=== PATIENT | male | born 1955 | race Caucasian/White ===

== ENCOUNTER 2020-06-05 07:50 | Day surgery (SDC) | payer BC ==
[~2020-06-05 07:50] MED LIST: Midazolam 1 MG/ML 2 ML SDV ONE; Propofol 200 MG/20 ML SDV ONE; fentaNYL 100 MCG/2 ML SDV ONE
[2020-06-05] MEDS ORDERED: Sodium Chloride 0.9% 1,000 ML IV SCH (08:30)
--- NOTE | 2020-06-05 13:31 | OR ---
DATE OF PROCEDURE: 06/05/2020 SURGEON: Jerrell Perera MD PREOPERATIVE DIAGNOSIS: Positive Cologuard test. POSTOPERATIVE DIAGNOSIS: Positive Cologuard test. PROCEDURE: Colonoscopy. FINDINGS: Rectal polyp, approximately 1 cm, completely removed using hot snare wire device. COMPLICATION: None. SEMICONDUCTOR TECHNICIAN: None. ANESTHESIA: MAC. RISKS: Risks, benefits, alternatives, and limitations including, but not limited to infection, bleeding, perforation, false positives and false negatives were explained to the patient who wished to proceed. PROCEDURE IN DETAIL: The patient was placed in left lateral decubitus position. Digital rectal exam was performed without abnormality. Scope was introduced and advanced atraumatically to the ileocecal valve. A photo was taken of this. Scope was brought back through the ascending, transverse, descending colon, and retroflexed. No evidence of old or new blood. No masses. No diverticulosis. No colitis. Within the rectum, there was the aforementioned polyp that was completely removed. The patient had small amount of bleeding, the cautery was used to control this. No abnormalities on retroflexion. Greater than 8 minutes was spent removing the scope. The prep was acceptable, approximately 95% of the luminal surface could be seen. Jerrell Perera MD /[id number]
== END 2020-06-05 10:45 | disposition home or self-care (01) ==
LOC: JP.SDS 07:50
PROVIDERS: ATTEND Surgery
DX: D12.8 Benign neoplasm of rectum (principal); I10 Essential (primary) hypertension; E78.5 Hyperlipidemia, unspecified; Z88.8 Allergy status to other drugs, medicaments and biological substances
CPT/HCPCS: 45385; J2250; J2704; J3010; J7030; 88305

== ENCOUNTER 2021-04-10 09:38 | Emergency (ER) | payer BC ==
--- NOTE | 2021-04-10 11:02 | EDM.PDOC ---
ED HPI GENERAL MEDICAL PROBLEM - General Chief Complaint: General Stated Complaint: VERTIGO Time Seen by Provider: 04/10/21 10:00 Source of Information: Reports: Patient History Limitations: Reports: No Limitations - History of Present Illness INITIAL COMMENTS - FREE TEXT/NARRATIVE: 65-year-old male arrives with significant vertigo, it was present when he woke up at 5:00 this morning. His only other complaint is the last couple weeks he says he has been more "forgetful" and seemed to have decreased short-term memory but no other complaints. No recent illness. This morning he woke at 5:00, could barely get to the bathroom because the room was spinning and he has been laying in bed this morning watching the ceiling spinning and it was not improving. No pain, no double vision, some mild nausea but no vomiting, no recent trauma. He has no peripheral symptoms such as hand arm or leg weakness. Onset: Unknown/Unsure (Symptoms were present when he woke at 5 AM) Duration: Hour(s): (At least 5 or 6 hours) Improves with: Reports: Other (Sitting still is somewhat helpful) Worsens with: Reports: Movement Associated Symptoms: Reports: Other (Mild nausea, no vomiting) - Related Data Allergies Allergy/AdvReac Type Severity Reaction Status Date / Time lisinopril AdvReac Cough Verified 06/05/20 08:05 Home Meds: Home Meds Losartan [Cozaar] 50 mg PO DAILY 06/03/20 [History] atorvaSTATin [Lipitor] 20 mg PO BEDTIME 06/03/20 [History] Multivitamin with Minerals [Multiple Vitamin] 1 tab PO DAILY 06/05/20 [History] Past Medical History Cardiovascular History: Reports: Hypertension Neurological History: Reports: Concussion - Infectious Disease History Infectious Disease History: Reports: Chicken Pox - Past Surgical History HEENT Surgical History: Reports: Other (See Below) Other HEENT Surgeries/Procedures: wisdom teeth x2 GI Surgical History: Reports: Colonoscopy Social & Family History - Tobacco Use Tobacco Use Status *Q: Never Tobacco User - Caffeine Use Caffeine Use: Reports: None - Recreational Drug Use Recreational Drug Use: No ED ROS GENERAL - Review of Systems Review Of Systems: See Below Constitutional: Reports: Malaise. Denies: Fever, Chills HEENT: Denies: Vision Change Respiratory: Denies: Shortness of Breath Cardiovascular: Denies: Chest Pain Endocrine: Reports: No Symptoms GI/Abdominal: Reports: Nausea. Denies: Constipation, Diarrhea, Vomiting : Reports: No Symptoms Musculoskeletal: Reports: No Symptoms Skin: Reports: No Symptoms Neurological: Reports: Dizziness (Vertigo), Other (Over the past couple weeks concerned about short-term memory loss) Psychiatric: Reports: No Symptoms ED EXAM, GENERAL - Physical Exam Exam: See Below Exam Limited By: No Limitations General Appearance: Alert, No Apparent Distress Eye Exam: Bilateral Eye: PERRL, Other (Definite nystagmus when looking to the left) Ears: Normal TMs Head: Atraumatic Neck: Supple, Non-Tender Respiratory/Chest: No Respiratory Distress Cardiovascular: Regular Rate, Rhythm Extremities: Normal Inspection Neurological: Alert, Oriented Psychiatric: Normal Affect, Normal Mood Skin Exam: Warm, Dry Course - Vital Signs Last Recorded V/S: Last Vital Signs Temp 94.3 F L 04/10/21 09:56 Pulse 64 04/10/21 13:50 Resp 16 04/10/21 09:56 BP 142/82 H 04/10/21 13:50 Pulse Ox 97 04/10/21 13:50 - Orders/Labs/Meds Labs: Laboratory Tests 04/10/21 04/10/21 Range/Units 11:50 12:00 WBC 9.7 (4.5-11.0) K/uL RBC 4.96 (4.30-5.90) M/uL Hgb 14.7 (12.0-15.0) g/dL Hct 43.4 (40.0-54.0) % MCV 88 (80-98) fL MCH 30 (27-31) pg MCHC 34 (32-36) % Plt Count 266 (150-400) K/uL Neut % (Auto) 81.5 H (36-66) % Lymph % (Auto) 10.5 L (24-44) % Brown % (Auto) 7.7 H (2-6) % Eos % (Auto) 0.0 L (2-4) % Baso % (Auto) 0.3 (0-1) % Sodium 136 L (140-148) mmol/L Potassium 3.9 (3.6-5.2) mmol/L Chloride 102 (100-108) mmol/L Carbon Dioxide 24 (21-32) mmol/L Anion Gap 13.9 (5.0-14.0) mmol/L BUN 17 (7-18) mg/dL Creatinine 1.0 (0.8-1.3) mg/dL Est Cr Clr Drug Dosing 75.61 mL/min Estimated GFR (MDRD) > 60 (>60) Glucose 120 H (74-106) mg/dL Calcium 8.6 (8.5-10.1) mg/dL Meds: Medications Discontinued Medications Generic Name Dose Route Start Last Admin Trade Name Freq PRN Reason Stop Dose Admin Sodium Chloride 100 mls @ 3 mls/sec 04/10/21 11:45 04/10/21 12:37 Normal Saline IV 3 mls/sec ASDIRECTED AUTUMN Administration Iopamidol 100 ml 04/10/21 11:41 04/10/21 12:37 Iopamidol 612 Mg/Ml 100 Ml Bottle IV 04/11/21 11:42 100 ml . DIRECTED PRN Administration RADIOLOGY EXAM Meclizine HCl 25 mg 04/10/21 13:40 04/10/21 13:49 Meclizine 25 Mg Tab PO 04/10/21 13:41 Not Given ONETIME ONE Sodium Chloride 10 ml 04/10/21 11:41 04/10/21 11:49 Sodium Chloride 0.9% 10 Ml Sdv FLUSH 04/10/21 11:42 10 ml ONETIME ONE Administration - Re-Assessments/Exams Free Text/Narrative Re-Assessment/Exam: 04/10/21 11:01 His vertiginous symptoms were isolated to the left side, so an Kat maneuver was attempted but unsuccessful. This was followed by a CT scan of the head. 04/10/21 13:[address] was negative, CBC and BMP were normal other than a mildly elevated glucose. His symptoms were persistent, a CT angiogram of the head was ordered to rule out vertebral artery circulation issues. 04/10/21 13:30 CT angiogram is negative, patient will be discharged with meclizine to take as a as needed basis and recheck in 2 or 3 days if not improving satisfactorily. 04/10/21 15:36 Prior to discharge the patient developed some nausea so was given Zofran as well. Departure - Departure Time of Disposition: 14:17 Disposition: Home, Self-Care 01 Clinical Impression: Vertigo Acute vestibular neuritis Qualifiers: Laterality: left Qualified Code(s): H81.22 - Vestibular neuronitis, left ear - Discharge Information Instructions: Vertigo, [id number] Referrals: PCP,None [Primary Care Provider] - Forms: ED Department Discharge Care Plan Goals: Try the meclizine up to 3 times a day if needed for persistent symptoms. Stay hydrated, increase activity as tolerated, recheck next week as scheduled or return sooner if worsening or concerns. Sepsis Event Note (ED) - Evaluation Sepsis Screening Result: No Definite Risk - Focused Exam Vital Signs: Vital Signs Temp Pulse Resp BP Pulse Ox 04/10/21 13:50 64 142/82 H 97 04/10/21 12:00 57 L 166/91 H 96 04/10/21 11:13 65 172/100 H 95 04/10/21 09:56 94.3 F L 53 L 16 149/84 H 97
--- NOTE | 2021-04-10 11:24 | CRLCT ---
For Patients: As a result of the Century Cures Act, medical imaging exams and procedure reports are released immediately into your electronic medical record. You may view this report before your referring provider. If you have questions, please contact your health care provider. INDICATION: Vertigo, concern for cerebellar infarct TECHNIQUE: CT head without contrast. COMPARISON: 12/31/2010 FINDINGS: CSF spaces: Within normal limits for age. Brain parenchyma: The zarco-white differentiation is normal. No sign of mass, hemorrhage, or midline shift. Skull base and calvarium: The visualized paranasal sinuses and mastoid air cells are clear. The visualized orbits are grossly unremarkable. No skull fractures. IMPRESSION: Unremarkable noncontrast head CT. Please note that all CT scans at this facility use dose modulation, iterative reconstruction, and/or weight-based dosing when appropriate to reduce radiation dose to as low as reasonably achievable. Dictated by Bernardino Díaz MD @ 04/10/2021 11:23:26 AM (Electronically Signed)
[2021-04-10] MEDS ORDERED: Iopamidol 612 MG/ML 100 ML Bottle IV PRN (11:41)
[2021-04-10] MEDS ORDERED: Sodium Chloride 0.9% 10 ML SDV FLUSH ONE (11:41)
[2021-04-10] MEDS ORDERED: Sodium Chloride 0.9% 100 ML IV SCH (11:45)
--- NOTE | 2021-04-10 13:17 | CRLCT ---
For Patients: As a result of the Century Cures Act, medical imaging exams and procedure reports are released immediately into your electronic medical record. You may view this report before your referring provider. If you have questions, please contact your health care provider. INDICATION: Vertigo since 5 a.m. this morning. Assess vertebral regulation TECHNIQUE: Scanning of the head was performed with 100 cc of Isovue-300 contrast material IV. Coronal and sagittal reconstructions were obtained. COMPARISON: Head CT performed without IV contrast earlier today. FINDINGS: The distal vertebral arteries and basilar artery are tortuous but normal in caliber. The other visualized vascular structures are unremarkable. No abnormal contrast enhancement is demonstrated. No acute hemorrhage, parenchymal attenuation abnormality, or mass effect is demonstrated. Differentiation between the zarco matter and white matter is preserved. The ventricles and other subarachnoid spaces are within normal limits. No calvarial abnormality is evident. The visualized paranasal and mastoid sinuses are clear. IMPRESSION: Negative contrast-enhanced head CT. Please note that all CT scans at this facility use dose modulation, iterative reconstruction, and/or weight-based dosing when appropriate to reduce radiation dose to as low as reasonably achievable. Dictated by Shailesh Baez MD @ 04/10/2021 1:15:52 PM (Electronically Signed)
[2021-04-10] MEDS ORDERED: Meclizine 25 MG Tab PO ONE (13:40)
== END 2021-04-10 14:00 | disposition home or self-care (01) ==
LOC: JP.ED 09:38
DX: H81.22 Vestibular neuronitis, left ear (principal); I10 Essential (primary) hypertension; Z79.899 Other long term (current) drug therapy; Z88.8 Allergy status to other drugs, medicaments and biological substances
CPT/HCPCS: 36415; 70450; 70460; 80048; 85025; 99284; Q9967

== ENCOUNTER 2022-05-08 13:40 | Emergency (ER) | payer BC, OTHER | END 2022-05-08 14:53 | disposition home or self-care (01) | LOC: JP.ED 13:40 | DX: S63.501A Unspecified sprain of right wrist, initial encounter (principal); I10 Essential (primary) hypertension; Z88.8 Allergy status to other drugs, medicaments and biological substances; Z79.899 Other long term (current) drug therapy; Z87.891 Personal history of nicotine dependence | CPT/HCPCS: 73110-RT; 99282; 99283 ==

== ENCOUNTER 2022-08-24 08:53 | Emergency (ER) | payer OTHER ==
[2022-08-24] MEDS ORDERED: Apixaban 5 MG Tab PO ONE (10:44)
== END 2022-08-24 11:05 | disposition home or self-care (01) ==
LOC: JP.ED 08:53
DX: I82.621 Acute embolism and thrombosis of deep veins of right upper extremity (principal); I10 Essential (primary) hypertension; Z88.8 Allergy status to other drugs, medicaments and biological substances; Z79.899 Other long term (current) drug therapy
CPT/HCPCS: 93971-26; 93971-RT; 99283; A9270-GY

== ENCOUNTER 2023-03-14 01:05 | Emergency (ER) | payer OTHER ==
[2023-03-14] MEDS ORDERED: Sodium Chloride 0.9% 10 ML Syringe FLUSH PRN (01:21)
[2023-03-14 01:31] LABS: BASOPHILS ABSOLUTE AUTO 0.08 K/uL (0.00-0.10); BASOPHILS PERCENT AUTO 0.6 % (0.1-1.3); EOSINOPHILS ABSOLUTE AUTO 0.08 K/uL (0.00-0.40); EOSINOPHILS PERCENT AUTO 0.6 % (0.0-5.4); HEMATOCRIT 32.1 % (38.4-49.7); HEMOGLOBIN 10.7 g/dL (12.9-16.9); IMMATURE GRAN ABSOLUTE AUTO 0.07 K/uL (0.00-0.23); IMMATURE GRAN PERCENT AUTO 0.5 % (0.0-0.7); LYMPHOCYTES ABSOLUTE AUTO 2.26 K/uL (0.8-3.3); LYMPHOCYTES PERCENT AUTO 17.4 % (11.4-47.7); MEAN CORPUSCULAR HEMOGLOBIN 29.3 pg (31.6-35.5); MEAN CORPUSCULAR HGB CONC 33.3 g/dL (31.6-35.5); MEAN CORPUSCULAR VOLUME 87.9 fL (81.4-99.0); MONOCYTES ABSOLUTE AUTO 0.88 K/uL (0.20-0.90); MONOCYTES PERCENT AUTO 6.8 % (3.3-12.6); NEUTROPHILS ABSOLUTE AUTO 9.61 K/uL (1.0-7.6); NEUTROPHILS PERCENT AUTO 74.1 % (40.0-78.1); PLATELET COUNT,PLT 373 K/uL (130-375); RED BLOOD CELL COUNT 3.65 M/uL (4.14-5.76)
[2023-03-14] MEDS ORDERED: Sodium Chloride 0.9% 100 ML IV STA (01:47)
[2023-03-14] MEDS ORDERED: Iopamidol 612 MG/ML 100 ML Bottle IV STA (01:47)
[2023-03-14 01:50] LABS: PROTHROMBIN TIME 10.1 sec (9.2-10.6); PTT,PARTIAL THROMBOPLSTIN TIME 22.3 sec (21.8-27.3)
[2023-03-14 01:52] LABS: A/G RATIO 0.9 (1.2-2.2); ALANINE AMINOTRANSFERASE,ALT 11 U/L (12-78); ALBUMIN 3.3 g/dL (3.4-5.0); ALKALINE PHOSPHATASE 50 U/L (46-116); ASPARTATE AMNIOTRANSFERASE,AST 14 U/L (15-37); BILIRUBIN TOTAL 0.4 mg/dL (0.2-1.0); BLOOD UREA NITROGEN,BUN 19 mg/dL (7-18); C-REACTIVE PROTEIN 0.55 mg/dL (0.0-0.3); CALCIUM 8.4 mg/dL (8.5-10.1); CARBON DIOXIDE,CO2 24 mmol/L (21-32); CHLORIDE,CL 104 mmol/L (100-108); EST CRCL DRUG DOSING (CG) 73.65 mL/min; ESTIMATED GFR 84 mL/min (>60); GLUCOSE RANDOM 151 mg/dL (74-106); POTASSIUM,K 3.8 mmol/L (3.6-5.2); PROTEIN TOTAL,TP 6.8 g/dL (6.4-8.2); SODIUM,NA 139 mmol/L (140-148)
[2023-03-14 01:53] LABS: ANION GAP 14.8 mmol/L (5.0-14.0)
[2023-03-14] MEDS ORDERED: Ondansetron 4 MG/2 ML SDV ONE (01:58)
[2023-03-14] MEDS ORDERED: Ondansetron 4 MG/2 ML SDV IVPUSH ONE (01:59)
[2023-03-14] MEDS ORDERED: Sodium Chloride 0.9% 1,000 ML IV SCH (02:00)
== END 2023-03-14 03:45 ==
LOC: JP.ED 01:05
DX: M96.830 Postprocedural hemorrhage of a musculoskeletal structure following a musculoskeletal system procedure (principal); I10 Essential (primary) hypertension; Z88.6 Allergy status to analgesic agent; Z88.8 Allergy status to other drugs, medicaments and biological substances; Z88.5 Allergy status to narcotic agent; Z79.899 Other long term (current) drug therapy
CPT/HCPCS: 36415; 71260; 80053; 85025; 85610; 85730; 86140; 96374; 99284; 99285-25; J2405; J3490; J7030; Q9967